=== PATIENT | female | born 1945 | race Caucasian/White ===

== ENCOUNTER → 2016-09-26 | Outpatient (CLI) | payer MEDICARE ==
--- NOTE | 2016-10-05 09:53 | RSPPFT ---
DATE OF PROCEDURE: 09/26/16 COMMENTS: VOLUMES DYNAMIC: FVC and FEV1 normal. STATIC: TLC, RV and FRC normal. FLOWS: FEV1% mildly reduced; FEF 25-75 moderately educed. DIFFUSION: Normal. FLOW VOLUME LOOP: Terminal airflow obstruction. IMPRESSION: Very mild airways obstruction with no significant improvement post-bronchodilator. Diffusion is normal. Airways resistance is only mildly increased.
== END ==
LOC: HRSP 12:51
PROVIDERS: ATTEND Internal Medicine
DX: J45.909 Unspecified asthma, uncomplicated (principal); R06.02 Shortness of breath
CPT/HCPCS: 94060; 94620; 94726; 94729; 95012

== ENCOUNTER 2017-03-13 09:19 | Emergency (ER) | payer MEDICARE ==
[~2017-03-13] VITALS: Ht 181.6 cm; Wt 76.1 kg
[2017-03-13 09:30] VITALS: BP 114/72; PULSE 86; RESP 16; TEMP 98.7; O2SAT 96
--- NOTE | 2017-03-13 10:01 | PD ---
HPI Chief Complaint: Fall Time Seen by Provider: 09:51 Travel History International Travel<30 days: No Contact w/Intl Traveler<30days: No Traveled to known affect area: No History of Present Illness HPI 72-year-old female with right hip and left ankle pain after a slip and fall down one step 4 days ago. She denies head injury or loss of consciousness. Patient is not anticoagulated. Pain is constant, throbbing, worse with weightbearing and movement and relieved with rest. She denies headache, neck pain, chest pain, abdominal pain, paresthesia or weakness of extremities. Symptom severity mild. PFSH Past Medical History Medical History: Denies Significant Hx Diminished Hearing: No Tetanus Vaccination: Unknown ?: Not Past Surgical History Eye Surgery: Yes (RIGHT EYE LENS SX) Hysterectomy: Yes Tonsillectomy: Yes Social History Alcohol Use: Yes (SOC) Tobacco Use: No Substance Use: No Allergies-Medications (Allergen,Severity, Reaction): Coded Allergies: morphine (Verified Allergy, Severe, 03/13/17) Reported Meds & Prescriptions Reported Meds & Active Scripts Active No Active Prescriptions or Reported Medications Review of Systems Except as stated in HPI: all other systems reviewed are Neg Physical Exam Narrative GENERAL: Alert well-appearing female lying comfortably on the stretcher. SKIN: Focused skin assessment warm/dry. HEAD: Atraumatic. Normocephalic. EYES: Pupils equal and round. No scleral icterus. No injection or drainage. ENT: No nasal bleeding or discharge. Mucous membranes pink and moist. NECK: Trachea midline. No JVD. No cervical midline tenderness CARDIOVASCULAR: Regular rate and rhythm. No murmur appreciated. No chest wall tenderness. RESPIRATORY: No accessory muscle use. Clear to auscultation. Breath sounds equal bilaterally. GASTROINTESTINAL: Abdomen soft, non-tender, nondistended. Hepatic and splenic margins not palpable. MUSCULOSKELETAL: No obvious deformities. No clubbing. No cyanosis. No edema. Left lower extremity: Faint area of ecchymosis to the lateral malleolus of the left ankle. The joint is stable. 2+ dorsal pedis pulse. Extremity is neurovascularly intact. Right lower extremity: Tenderness over the lateral aspect of the hip. Patient is able to flex and externally rotate the hip with only mild discomfort. 2+ dorsal pedis pulse. Extremity is neurovascular intact. BACK: No CVA tenderness. No rash. No point tenderness on palpation of the spine. NEUROLOGICAL: Awake and alert. No obvious cranial nerve deficits. Motor grossly within normal limits. Normal speech. Normal strength and sensation in extremities. PSYCHIATRIC: Appropriate mood and affect; insight and judgment normal. Data Data Last Documented VS Vital Signs Date Time Temp Pulse Resp B/P (MAP) Pulse Ox O2 Delivery O2 Flow Rate FiO2 03/13/17 09:38 16 96 Room Air 03/13/17 09:30 98.7 86 114/72 (86) Orders Orders Ankle, Complete ([id number]) (03/13/17 ) Hip, Uni(Ap&Lat) W Ap Pelvis (03/13/17 ) Ed Discharge Order (03/13/17 10:51) [facility] Medical Decision Making Medical Screen Exam Complete: Yes Emergency Medical Condition: Yes Differential Diagnosis Ankle sprain, fibular fracture, hip fracture, hip sprain/strain Narrative Course 72-year-old female with right hip and left ankle pain after a slip and fall 4 days ago. Patient is well-appearing. She is ambulatory. Extremities are neurovascularly intact. Pelvis is stable. X-rays are ordered and pending X-ray right hip pelvis: Negative for fracture X-ray left ankle: Negative for fracture X-ray findings were discussed with patient. She was reexamined. Her pain is mild and she is ambulatory with minimal discomfort. CT of the right hip was offered and patient declined. Patient states she would rather follow-up with her primary in several days and if pain persist proceed with further imaging at that time. Patient has ankle and knee brace on currently. Diagnosis Primary Impression: Left ankle sprain Qualified Codes: S93.402A - Sprain of unspecified ligament of left ankle, initial encounter Additional Impressions: Right knee sprain Qualified Codes: S83.91XA - Sprain of unspecified site of right knee, initial encounter Right hip pain Referrals: Primary Care Physician Additional Instructions: Take [id number] Tylenol or Aleve as needed for discomfort. Avoid heavy lifting and strenuous activity. Follow-up with your doctor in 1 week for recheck. Continue to wear ankle and knee brace as discussed. Return to the emergency department if he developed new or worsening symptoms. Scripts No Active Prescriptions or Reported Meds Disposition: 01 DISCHARGE HOME Condition: Stable AlexmicaCarly ARGUETA Mar 13, 2017 10:01
--- NOTE | 2017-03-13 10:24 | RADRPT ---
EXAM DATE/TIME: 03/13/2017 09:57 [facility] COMPARISON: No previous studies available for comparison. INDICATIONS : Left ankle pain; 2 falls within the last week. MEDICAL HISTORY : None. SURGICAL HISTORY : None. ENCOUNTER: Initial ACUITY: 1 week PAIN SCORE: 3/10 LOCATION: Left ankle. FINDINGS: Three view exam was performed of the left ankle. The bony structures are in normal alignment. No ev idence of fracture, dislocation. Minimal soft tissue swelling lateral malleolus. Minimal degenerati ve changes lateral malleolus The ankle mortise is intact. CONCLUSION: Soft tissue swelling laterally with with mild degenerative changes. No fracture Mickey Hobson MD FACR on March 13, 2017 at 10:21 Board Certified Radiologist. This report was verified electronically.
--- NOTE | 2017-03-13 10:25 | RADRPT ---
EXAM DATE/TIME: 03/13/2017 09:57 [facility] COMPARISON: No previous studies available for comparison. INDICATIONS : Right hip pain; 2 falls within the last week. MEDICAL HISTORY : None. SURGICAL HISTORY : None. ENCOUNTER: Initial ACUITY: 1 week PAIN SCORE: 5/10 LOCATION: Right posterior hip FINDINGS: Examination of the right hip was performed with AP Pelvis. The primary and secondary trabecular jeanna grisel of the femoral neck is intact. The hip joint is of normal width without significant sclerosis or bony hypertrophy. The acetabulum is grossly intact. CONCLUSION: Negative for fracture Mickey Hobson MD FACR on March 13, 2017 at 10:22 Board Certified Radiologist. This report was verified electronically.
== END 2017-03-13 11:04 | disposition home or self-care (01) ==
LOC: PHED 09:19
DX: S93.402A Sprain of unspecified ligament of left ankle, initial encounter (principal); S83.91XA Sprain of unspecified site of right knee, initial encounter; M25.551 Pain in right hip; W10.9XXA Fall (on) (from) unspecified stairs and steps, initial encounter
CPT/HCPCS: 73502; 73610; 99283